=== PATIENT | female | born 1955 | race Caucasian/White ===

== ENCOUNTER 2016-05-15 14:52 | Emergency (ER) | payer OTHER ==
[~2016-05-15] VITALS: Ht 160 cm; Wt 64.1 kg
[2016-05-15] MEDS ORDERED: FLEXERIL PO (15:51)
[2016-05-15] MEDS ORDERED: MOTRIN800 MG PO (15:51)
[2016-05-15] MEDS ORDERED: LORTAB 5-325 MG1 TAB PO (15:51)
[2016-05-15 16:18] VITALS: BP 139/80
== END 2016-05-15 16:19 | disposition home or self-care (01) | DRG 552 ==
LOC: ED 14:52
DX: S16.1XXA Strain of muscle, fascia and tendon at neck level, initial encounter (principal); S39.012A Strain of muscle, fascia and tendon of lower back, initial encounter; V49.40XA Driver injured in collision with unspecified motor vehicles in traffic accident, initial encounter; Y92.410 Unspecified street and highway as the place of occurrence of the external cause